=== PATIENT | male | born 1960 | race African-American/Black ===

== ENCOUNTER 2022-01-01 11:20 | Emergency (ER) | payer MEDICAID ==
[~2022-01-01] VITALS: Ht 172.7 cm; Wt 67.0 kg
[~2022-01-01 11:20] MED LIST: TOPUD PO
[2022-01-01] MEDS ORDERED: TETANUS, DIPHTHERIA, PERTUSSIS VAC/PF 0.5ML (>10YR OLD) IM ONE ×2 (11:45→15:30)
[2022-01-01] MEDS ORDERED: LIDOCAINE HCL/EPINEPHRINE 1%-EPI 1:100,000 20 ML VIAL INFIL ONE (12:15)
[2022-01-01 12:32] LABS: HEMOGLOBIN. 12.2 g/dL (14.0-18.0); MEAN CORPUSCULAR HEMOGLOBIN 31.1 pg (28.0-32.0); MEAN CORPUSCULAR VOLUME 92.1 fL (80.0-94.0); MEAN PLATELET VOLUME 7.3 fl (7.4-10.4); PLATELET 152 x1000/uL (130-400); RED BLOOD CELL COUNT 3.91 mill/uL (4.7-6.1); RED CELL DISTRIBUTION WIDTH 14.4 % (11.6-14.6)
[2022-01-01 12:42] LABS: CHLORIDE 100 mEq/L (98-107)
[2022-01-01 12:59] LABS: ETHANOL BLOOD 347 mg/dL
[2022-01-01 13:11] LABS: PLATELET ESTIMATE NORMAL
[2022-01-01 20:30] VITALS: BP 118/87
== END 2022-01-01 20:30 | disposition home or self-care (01) ==
LOC: ER 11:20
DX: S01.01XA Laceration without foreign body of scalp, initial encounter (principal); F10.129 Alcohol abuse with intoxication, unspecified; I10 Essential (primary) hypertension; F17.210 Nicotine dependence, cigarettes, uncomplicated; Y90.8 Blood alcohol level of 240 mg/100 ml or more; W01.0XXA Fall on same level from slipping, tripping and stumbling without subsequent striking against object, initial encounter; Y93.89 Activity, other specified; Y92.488 Other paved roadways as the place of occurrence of the external cause
CPT/HCPCS: 12001; 36415; 70450; 80053; 80320; 85025; 90471; 90715; 99284; J3490; Z7610; G0480